=== PATIENT | female | born 1995 | race Hispanic/Latino ===

== ENCOUNTER 2021-02-02 17:45 | Emergency (ER) | payer MEDICAID ==
[2021-02-02] MEDS ORDERED: FAMOTIDINE 20MG TAB 20 MG TAB ONE (18:29)
[2021-02-02] MEDS ORDERED: LIDOCAINE HCL 2% VISCOUS 15 ML UDCUP ONE (18:30)
[2021-02-02] MEDS ORDERED: MAG HYDROX/AL HYDROX/SIMETH ES 30 ML SUSP UDCUP ONE (18:30)
== END 2021-02-02 18:40 | disposition home or self-care (01) ==
LOC: EDH 17:45 → EEVIPCON 17:45 → EDH 18:40
DX: L90.5 Scar conditions and fibrosis of skin (principal); K21.9 Gastro-esophageal reflux disease without esophagitis; Z72.0 Tobacco use

== ENCOUNTER 2021-02-16 20:12 | Emergency (ER) | payer MEDICAID ==
[2021-02-16] MEDS ORDERED: ACETAMINOPHEN EXTRA STRENGTH 500 MG TABLET ONE (20:35)
== END 2021-02-16 21:00 ==
LOC: EDH 20:12
DX: L90.5 Scar conditions and fibrosis of skin (principal)
CPT/HCPCS: 73080